=== PATIENT | female | born 1970 | race American Indian/Alaskan Native ===

== ENCOUNTER 2018-09-09 19:09 | Emergency (ER) | payer MEDICAID, OTHER ==
--- NOTE | 2018-09-09 20:04 | EDM.PDOC ---
ED HPI GENERAL MEDICAL PROBLEM - General Chief Complaint: Respiratory Problem Stated Complaint: HARD TIME BREATHING Time Seen by Provider: 09/09/18 20:03 Source of Information: Reports: Patient History Limitations: Reports: No Limitations - History of Present Illness INITIAL COMMENTS - FREE TEXT/NARRATIVE: states was eating BBQ and developed SOB and hard to swallow since throat hurts. - Related Data Allergies Allergy/AdvReac Type Severity Reaction Status Date / Time No Known Allergies Allergy Verified 09/09/18 19:35 Home Meds: Home Meds . [No Known Home Meds] 09/09/18 [History] Past Medical History Cardiovascular History: Reports: None Respiratory History: Reports: Sleep Apnea Other Respiratory History: pt was to f/u with MD but did not go Gastrointestinal History: Reports: None Genitourinary History: Reports: None Neurological History: Reports: None Psychiatric History: Reports: None Endocrine/Metabolic History: Reports: None Hematologic History: Reports: None Dermatologic History: Reports: None - Past Surgical History GI Surgical History: Reports: None Musculoskeletal Surgical History: Reports: None Social & Family History - Tobacco Use Smoking Status *Q: Never Smoker Second Hand Smoke Exposure: No - Caffeine Use Caffeine Use: Reports: Coffee, Soda - Recreational Drug Use Recreational Drug Use: No ED ROS GENERAL - Review of Systems Review Of Systems: ROS reveals no pertinent complaints other than HPI. ED EXAM, GENERAL - Physical Exam Exam: See Below Exam Limited By: No Limitations General Appearance: Alert, WD/WN, Mild Distress, Other (discomfort) Ears: Hearing Grossly Normal Throat/Mouth: Normal Voice, No Airway Compromise, Other (injected) Head: Atraumatic Neck: Non-Tender, Full Range of Motion Respiratory/Chest: No Respiratory Distress, No Accessory Muscle Use, Rhonchi. No: Decreased Breath Sounds Cardiovascular: Regular Rate, Rhythm GI/Abdominal: Soft, Non-Tender Neurological: Alert, Oriented, Normal Cognition, Normal Gait, No Motor/Sensory Deficits Psychiatric: Normal Affect, Normal Mood Skin Exam: Warm, Dry, Normal Color Lymphatic: No Adenopathy Course - Vital Signs Last Recorded V/S: Last Vital Signs Temp 36.7 C 09/09/18 19:36 Pulse 92 09/09/18 19:36 Resp 15 09/09/18 19:36 BP 121/66 09/09/18 19:36 Pulse Ox 98 09/09/18 19:36 - Orders/Labs/Meds Orders: Active Orders 24 hr Category Date Time Status CULTURE STREP A CONFIRMATION [RM] Stat Lab 09/09/18 20:00 Results STREP SCRN A RAPID W CULT CONF [] Stat Lab 09/09/18 20:00 Results Meds: Medications Discontinued Medications Generic Name Dose Route Start Last Admin Trade Name Chay PRN Reason Stop Dose Admin Acetaminophen Confirm 09/09/18 20:34 09/09/18 20:52 Tylenol Extra Strength Administered 09/09/18 20:35 Not Given Dose 1,000 mg .ROUTE .STK-MED ONE Amoxicillin 250 mg 09/09/18 20:46 09/09/18 20:52 Amoxil PO 09/09/18 20:47 250 mg ONETIME ONE Administration - Re-Assessments/Exams Free Text/Narrative Re-Assessment/Exam: 09/09/18 20:47 results discussed with pt who states she didn't eat anything different and has h /o sleep apnoea but missed an appt. Departure - Departure Time of Disposition: 20:55 Disposition: Home, Self-Care 01 Condition: Fair Clinical Impression: Tonsillopharyngitis - Discharge Information Instructions: Pharyngitis, [id number] Forms: ED Department Discharge Additional Instructions: 1) avoid solid foods next 24 hours 2) have liquids 3) follow up at clinic rx given; amox 250mg tid x 1 week - My Orders Last 24 Hours: My Active Orders 09/09/18 20:00 CULTURE STREP A CONFIRMATION [RM] Stat STREP SCRN A RAPID W CULT CONF [] Stat - Assessment/Plan Last 24 Hours: My Active Orders 09/09/18 20:00 CULTURE STREP A CONFIRMATION [RM] Stat STREP SCRN A RAPID W CULT CONF [] Stat
[2018-09-09] MEDS ORDERED: Acetaminophen 500 MG Tab ONE (20:34)
[2018-09-09] MEDS ORDERED: Amoxicillin 250 MG Cap PO ONE (20:46)
== END 2018-09-09 20:55 | disposition home or self-care (01) ==
LOC: DL.ED 19:09
DX: J03.90 Acute tonsillitis, unspecified (principal)
CPT/HCPCS: 71046; 87081; 87430; 99283; A9270